=== PATIENT | female | born 1980 | race Caucasian/White ===

== ENCOUNTER 2016-05-27 17:25 | Emergency (ER) | payer OTHER ==
--- NOTE | 2016-05-28 15:40 | ER ---
ADMIT: 05/27/2016 RM/LOC: ER [facility] MR#: [id number] [id number] DIMA BERNAL [address] [place] [id number] Emergency Room Report SEX: F AGE: 36 : 1980 DATE: 05/27/2016 ADDENDUM: This is a 36-year-old white female coming in with high blood pressure. She has actually had a stroke in the past. She has not had any insurance, so she has not been on any medicine for a year and gave her total of 40 of labetalol. This brought her pressure down, took her symptoms away. She is still running high. She is to take amlodipine. I gave her 5 of amlodipine here and then 30 until she can get in to see a doc. She will follow up within one week. CONDITION ON DISCHARGE: Improved. Arden Esteves MD/ andria JOB #: [id number] CC: Arden Esteves MD, Attending Physician Stevie Virk MD, Family Physician
== END 2016-05-27 19:20 | disposition home or self-care (01) ==
LOC: ER 17:25
DX: I10 Essential (primary) hypertension (principal); Z86.73 Personal history of transient ischemic attack (TIA), and cerebral infarction without residual deficits; Z87.891 Personal history of nicotine dependence; Z79.899 Other long term (current) drug therapy; Z88.8 Allergy status to other drugs, medicaments and biological substances